=== PATIENT | female | born 1935 | race Caucasian/White ===

== ENCOUNTER 2017-04-02 14:51 | Inpatient (IN) | payer MEDICARE, BC ==
[2017-04-02] MEDS ORDERED: HYDROmorphone* 1 MG/ML 1 ML SYR IV ONE ×2 (16:46→19:41)
[2017-04-02] MEDS ORDERED: Ondansetron INJ* 2 MG/ML VIAL IV ONE (16:46)
[2017-04-02 17:02] LABS: Hematocrit 39 % (35-47); Hemoglobin 12.5 g/dl (12.0-16.0); Mean Corpuscular HGB Conc 32 g/dl (31-36); Mean Corpuscular Hemoglobin 29 pg (27-31); Mean Corpuscular Volume 89 fL (80-97); Mean Platelet Volume 10 um3 (7.4-10.4); Red Blood Count 4.35 10^6/ul (4.0-5.4); Red Cell Distribution Width 14 % (10.5-15); White Blood Count 9.5 10^3/ul (3.5-10.8)
[2017-04-02 17:22] LABS: Albumin 3.8 g/dL (3.2-5.2); BUN/Creatinine Ratio 22.6 (8-20); C Reactive Protein 1.98 mg/L (< 5.00); Calcium 9.3 mg/dL (8.6-10.3); EGFR African American 58.2 (>60); EGFR Non-African American 45.3 (>60); Globulin 3.4 g/dL (2-4); Total Bilirubin 0.4 mg/dL (0.2-1.0); Total Protein 7.2 g/dL (6.4-8.9)
[2017-04-02 17:49] LABS: Potassium 4.4 mmol/L (3.5-5.0)
[2017-04-02] MEDS ORDERED: Iodixanol* (CONTRAST) 320 MG/ML 100 ML SDV IV ONE (17:49)
--- NOTE | 2017-04-02 18:50 | RAD ---
INDICATION: Diffuse abdominal pain COMPARISON: CT October 18, 2015 TECHNIQUE: Axial source images were obtained from the hemidiaphragms to the symphysis pubis following administration of oral and intravenous contrast. 85 mL Visipaque 320 was utilized. Coronal and sagittal reconstructed images were acquired. Lung bases: The lung bases are clear. Liver: The liver is normal in size. There are no masses. There is no ductal dilatation. Gallbladder: Cholecystectomy. Spleen: The spleen is normal in size. There are no masses. Pancreas: There is no focal pancreatic mass or ductal dilatation. Adrenal glands: There is no evidence of adrenal mass. Kidneys: The kidneys are normal in size and position. There are prompt nephrograms and there is prompt excretion bilaterally. There are small, bilateral renal cysts. There is no evidence of nephrolithiasis. Adenopathy: There is no evidence of adenopathy by size criteria. Fluid collections: There are no free or localized fluid collections. Vessels:There are atherosclerotic changes involving the aorta and iliac vessels. There is mild fusiform dilatation of the infrarenal abdominal aorta near the bifurcation measuring 2.6 cm in maximum transverse dimension, unchanged. The IVC appears normal. GI tract: There are no acute CT bowel findings. There is no obstruction. There are postsurgical changes of the GE junction presumably related to Samuel procedure. The wrap may be cephalad in position but appears unchanged. The lower GI tract is remarkable long segment mucosal edema of the descending colon and moderate diverticula. The CT appearance is most consistent with colitis given the length of colonic involvement although diverticulitis is not absolutely excluded. Pelvic organs: The uterus and adnexa appear normal Bladder: There are no bladder masses. Abdominal and pelvic soft tissues: The extraperitoneal abdominal and pelvic soft tissues appear normal.. Osseous structures: There are no acute osseous findings. Other: None IMPRESSION: 1. Nonspecific mucosal edema of the descending colon is likely related to a nonspecific colitis less likely acute diverticulitis. There are scattered diverticula throughout the colon. 2. Postop changes at the GE junction. There is no radiographic change.
--- NOTE | 2017-04-02 20:33 | HP ---
H&P (Free Text) History and Physical: PCP: Viktoria Caballero MD Date/Time of Evaluation: 04/02/20172029 CC: abdominal cramping w/ BRBPR HPI: Mrs Beltre is an 81YO female HX HTN, pancreatitis, CAD/LA associated w/ MSOF presents reporting being in her usual state of health yesterday, but awakening this AM with cramping abdominal pain, nausea, and "clammy" sweats. She had a formed BM followed by a couple episodes of loose stools then BRB streaking on toilet paper progressing to turning the toilet water red. She states food made the nausea better and admits to some light-headedness and generalized weakness. She denies HX of similar. 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 acute diastolic HF IBS essential tremor depression, mild hypothyroidism Ambulatory Orders Calcium [Oyster-Carlos Manuel 500] 1,000 mg PO DAILY 02/23/14 Lansoprazole CAP (NF) [Prevacid CAP (NF)] 30 mg PO BID 02/23/14 Levothyroxine TAB* [Synthroid 125 MCG TAB*] 125 mcg PO DAILY 02/23/14 Pancrelipase (NF) [Creon (NF)] 72,000 units PO TID 02/23/14 Aspirin EC Low Dose* [Ecotrin EC Low Dose 81 MG*] 81 mg PO DAILY 04/02/17 Calcitonin NASAL(NF) [Fortical(NR)] 1 mg BOTH NARES DAILY 04/02/17 Carvedilol TAB* [Coreg TAB*] 12.5 mg PO BID 04/02/17 Cyanocobalamin [Vitamin B-12] 1,000 mcg SL DAILY 04/02/17 Furosemide TAB* [Lasix TAB*] 20 mg PO DAILY 04/02/17 Lisinopril TAB* [Prinivil TAB*] 10 mg PO DAILY 04/02/17 Pramipexole TAB* [Mirapex TAB*] 0.125 - 0.25 mg PO DAILY 04/02/17 Promethazine TAB* [Phenergan TAB*] 12.5 mg PO Q8H PRN 04/02/17 Spironolactone TAB* [Aldactone TAB*] 25 mg PO DAILY 04/02/17 amLODIPine TAB* [Norvasc 5 mg TAB*] 10 mg PO DAILY 04/02/17 Allergies Cephalexin [From Keflex] Allergy (Verified 04/02/17 14:54) Shakes PSurgHx Samuel fundoplication cholecystectomy ERCP SocHx: quit smoking >30years ago, no alcohol or recreational drugs; , lives alone; retired; DNR/I code status FamHx: Father: CAD ROS: as above, otherwise reviewed and all were negative Constitutional: NAD, normally developed, obese elderly white female vitals: Vital Signs Temp 36.7 C 04/02/17 16:27 Pulse 86 04/02/17 20:00 Resp 20 04/02/17 20:00 BP 152/69 04/02/17 20:00 Pulse Ox 88 04/02/17 20:00 Intake & Output 04/01/17 04/02/17 04/02/17 23:59 11:59 23:59 Weight 68.039 kg Other: Date of Last Bowel 04/02 Movement Estimated Stool Amount Large HEENM: atraumatic; sclera/conjunctiva: non-icteric/clear; hearing: clinically intact; oropharynx: clear, mucosa moist Neck: soft tissue: non-tender; thyroid: normal Pulmonary: clear to auscultation bilaterally, good aeration, no accessory muscle use CV: RR/RR, normal S1S2, no carotid bruit, no jugular venous distention, 2+ B DP/ PT, no edema Abdominal: soft, non-distended, non-tender, no rebound/guarding/rigidity, normoactive bowel sounds, no hepatosplenomegaly or masses, no costovertebral angle tenderness Musculoskeletal: general: grossly intact; gait: stable Integumental: normal appearance and texture of exposed skin Psychiatric orientation: AA&O to PPS affect: calm mood: pleasant eye contact: good content: reliable responses: timely insight: good Testing: Lab Results 04/02/17 04/02/17 04/02/17 Range/Units 16:50 16:50 16:50 WBC 9.5 (3.5-10.8) 10^3/ul RBC 4.35 (4.0-5.4) 10^6/ul Hgb 12.5 (12.0-16.0) g/dl Hct 39 (35-47) % MCV 89 (80-97) fL MCH 29 (27-31) pg MCHC 32 (31-36) g/dl RDW 14 (10.5-15) % Plt Count 255 (150-450) 10^3/ul MPV 10 (7.4-10.4) um3 Neut % (Auto) 55.6 (38-83) % Lymph % (Auto) 26.1 (25-47) % [place] % (Auto) 10.4 H (1-9) % Eos % (Auto) 6.8 H (0-6) % Baso % (Auto) 1.1 (0-2) % Absolute Neuts (auto) 5.3 (1.5-7.7) 10^3/ul Absolute Lymphs (auto) 2.5 (1.0-4.8) 10^3/ul Absolute Monos (auto) 1.0 H (0-0.8) 10^3/ul Absolute Eos (auto) 0.6 (0-0.6) 10^3/ul Absolute Basos (auto) 0.1 (0-0.2) 10^3/ul Absolute Nucleated RBC 0 10^3/ul Nucleated RBC % 0 INR (Anticoag Therapy) (0.89-1.11) Sodium 137 (133-145) mmol/L Potassium 4.4 (3.5-5.0) mmol/L Chloride 107 (101-111) mmol/L Carbon Dioxide 23 (22-32) mmol/L Anion Gap 7 (2-11) mmol/L BUN 26 H (6-24) mg/dL Creatinine 1.15 H (0.51-0.95) mg/dL Est GFR ( Amer) 58.2 (>60) Est GFR (Non-Af Amer) 45.3 (>60) BUN/Creatinine Ratio 22.6 H (8-20) Glucose 99 (70-100) mg/dL Lactic Acid 0.6 (0.5-2.0) mmol/L Calcium 9.3 (8.6-10.3) mg/dL Total Bilirubin 0.40 (0.2-1.0) mg/dL AST 18 (13-39) U/L ALT 11 (7-52) U/L Alkaline Phosphatase 92 (34-104) U/L C-Reactive Protein 1.98 (< 5.00) mg/L Total Protein 7.2 (6.4-8.9) g/dL Albumin 3.8 (3.2-5.2) g/dL Globulin 3.4 (2-4) g/dL Albumin/Globulin Ratio 1.1 (1-3) Lipase 44 (11.0-82.0) U/L 04/02/17 Range/Units 16:50 WBC (3.5-10.8) 10^3/ul RBC (4.0-5.4) 10^6/ul Hgb (12.0-16.0) g/dl Hct (35-47) % MCV (80-97) fL MCH (27-31) pg MCHC (31-36) g/dl RDW (10.5-15) % Plt Count (150-450) 10^3/ul MPV (7.4-10.4) um3 Neut % (Auto) (38-83) % Lymph % (Auto) (25-47) % [place] % (Auto) (1-9) % Eos % (Auto) (0-6) % Baso % (Auto) (0-2) % Absolute Neuts (auto) (1.5-7.7) 10^3/ul Absolute Lymphs (auto) (1.0-4.8) 10^3/ul Absolute Monos (auto) (0-0.8) 10^3/ul Absolute Eos (auto) (0-0.6) 10^3/ul Absolute Basos (auto) (0-0.2) 10^3/ul Absolute Nucleated RBC 10^3/ul Nucleated RBC % INR (Anticoag Therapy) 0.95 (0.89-1.11) Sodium (133-145) mmol/L Potassium (3.5-5.0) mmol/L Chloride (101-111) mmol/L Carbon Dioxide (22-32) mmol/L Anion Gap (2-11) mmol/L BUN (6-24) mg/dL Creatinine (0.51-0.95) mg/dL Est GFR ( Amer) (>60) Est GFR (Non-Af Amer) (>60) BUN/Creatinine Ratio (8-20) Glucose (70-100) mg/dL Lactic Acid (0.5-2.0) mmol/L Calcium (8.6-10.3) mg/dL Total Bilirubin (0.2-1.0) mg/dL AST (13-39) U/L ALT (7-52) U/L Alkaline Phosphatase (34-104) U/L C-Reactive Protein (< 5.00) mg/L Total Protein (6.4-8.9) g/dL Albumin (3.2-5.2) g/dL Globulin (2-4) g/dL Albumin/Globulin Ratio (1-3) Lipase (11.0-82.0) U/L CT abd/pel W, personally reviewed: IMPRESSION: 1. Nonspecific mucosal edema of the descending colon is likely related to a nonspecific colitis less likely acute diverticulitis. There are scattered diverticula throughout the colon. 2. Postop changes at the GE junction. There is no radiographic change. 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
--- NOTE | 2017-04-02 20:57 | ED ---
Erik Saxena Benjamin, scribed for Grant Valadez MD on 04/02/17 at 1637 . Abdominal Pain/Female - HPI Summary HPI Summary: 81yo female c/o x2-3 episodes of bright red BM this morning. Bloody BM was light initially, but the subsequent BMs were heavier. Pt also reports intermittently contraction like aching suprapubic pain. Pt was nauseous and clammy as well. Pt denies leg swelling or pain. - History of Current Complaint Chief Complaint: EDGIBleed Stated Complaint: GI BLEEDING Time Seen by Provider: 04/02/17 15:39 Hx Obtained From: Patient, Family/Career Development Manager - family Onset/Duration: Lasting Days - since this morning, Still Present Timing: Intermittent Episode Lasting Severity Initially: Moderate Severity Currently: Moderate Pain Intensity: 5 Pain Scale Used: 0-10 Numeric Location: Suprapubic Radiates: No Associated Signs and Symptoms: Positive: Diaphoresis, Blood in Stool - x2-3, Nausea. Negative: Vaginal Bleeding Allergies/Adverse Reactions: Allergies Allergy/AdvReac Type Severity Reaction Status Date / Time Cephalexin [From Keflex] Allergy Shakes Verified 04/02/17 14:54 Home Medications: Home Medications Aspirin EC Low Dose* [Ecotrin EC Low Dose 81 MG*] 81 mg PO DAILY 04/02/17 [ History Confirmed 04/02/17] Calcitonin NASAL(NF) [Fortical(NR)] 1 mg BOTH NARES DAILY 04/02/17 [History Confirmed 04/02/17] Carvedilol TAB* [Coreg TAB*] 12.5 mg PO BID 04/02/17 [History Confirmed 04/02/17 ] Cyanocobalamin [Vitamin B-12] 1,000 mcg SL DAILY 04/02/17 [History Confirmed 11/14] Furosemide TAB* [Lasix TAB*] 20 mg PO DAILY 04/02/17 [History Confirmed 04/02/17 ] Lisinopril TAB* [Prinivil TAB*] 10 mg PO DAILY 04/02/17 [History Confirmed 04/02] Pramipexole TAB* [Mirapex TAB*] 0.125 - 0.25 mg PO DAILY 04/02/17 [History Confirmed 04/02/17] Promethazine TAB* [Phenergan TAB*] 12.5 mg PO Q8H PRN 04/02/17 [History Confirmed 04/02/17] Spironolactone TAB* [Aldactone TAB*] 25 mg PO DAILY 04/02/17 [History Confirmed 04/02/17] amLODIPine TAB* [Norvasc 5 mg TAB*] 10 mg PO DAILY 04/02/17 [History Confirmed 04/02/17] PMH/Surg Hx/FS Hx/Imm Hx Endocrine/Hematology History: Denies: Hx Diabetes, Hx Thyroid Disease Cardiovascular History: Reports: Hx Hypertension Denies: Hx Congestive Heart Failure Respiratory History: Denies: Hx Asthma, Hx Chronic Obstructive Pulmonary Disease (COPD) GI History: Reports: Hx Diverticulosis, Hx Gall Bladder Disease - removal- unknown year, Hx Irritable Bowel, Other GI Disorders - pancreatitis Denies: Hx Ulcer Sensory History: Reports: Hx Contacts or Glasses Opthamlomology History: Reports: Hx Contacts or Glasses - Surgical History Surgery Procedure, Year, and Place: GB Infectious Disease History: Denies: Hx Hepatitis, Hx Human Immunodeficiency Virus (HIV), Traveled Outside the in Last 30 Days - Family History Known Family History: Positive: Hypertension - Social History Occupation: Retired Lives: Alone Alcohol Use: None Substance Use Type: Reports: None Smoking Status (MU): Never Smoked Tobacco Review of Systems Positive: Skin Diaphoresis Eyes: Negative ENT: Negative Cardiovascular: Negative Respiratory: Negative Positive: Abdominal Pain, Nausea, Other - Bloody BMx2-3 Genitourinary: Negative Musculoskeletal: Negative Skin: Negative Positive: Weakness Psychological: Normal All Other Systems Reviewed And Are Negative: Yes Physical Exam Triage Information Reviewed: Yes Vital Signs On Initial Exam: Initial Vitals Temp Pulse Resp BP Pulse Ox 98.1 F 89 20 164/80 96 04/02/17 14:54 04/02/17 14:54 04/02/17 14:54 04/02/17 14:54 04/02/17 14:54 Vital Signs Reviewed: Yes Appearance: Positive: Well-Appearing, No Pain Distress, Well-Nourished Skin: Positive: Warm, Skin Color Reflects Adequate Perfusion, Dry Head/Face: Positive: Normal Head/Face Inspection Eyes: Positive: Normal ENT: Positive: Normal ENT inspection Neck: Positive: Supple, Nontender Respiratory/Lung Sounds: Positive: Clear to Auscultation, Breath Sounds Present Cardiovascular: Positive: RRR Abdomen Description: Positive: Other: - tenderness at RLQ and epigastric Bowel Sounds: Positive: Present Musculoskeletal: Positive: Normal, Strength/ROM Intact Neurological: Positive: Normal, Sensory/Motor Intact, Alert, Oriented to Person Place, Time, CN Intact II-III Psychiatric: Positive: Affect/Mood Appropriate Diagnostics - Vital Signs Vital Signs Temp Pulse Resp BP Pulse Ox 04/02/17 16:00 79 17 171/67 94 04/02/17 15:30 156/74 04/02/17 14:54 98.1 F 89 20 164/80 96 - Laboratory Lab Results: Lab Results 04/02/17 04/02/17 04/02/17 Range/Units 16:50 16:50 16:50 WBC 9.5 (3.5-10.8) 10^3/ul RBC 4.35 (4.0-5.4) 10^6/ul Hgb 12.5 (12.0-16.0) g/dl Hct 39 (35-47) % MCV 89 (80-97) fL MCH 29 (27-31) pg MCHC 32 (31-36) g/dl RDW 14 (10.5-15) % Plt Count 255 (150-450) 10^3/ul MPV 10 (7.4-10.4) um3 Neut % (Auto) 55.6 (38-83) % Lymph % (Auto) 26.1 (25-47) % [place] % (Auto) 10.4 H (1-9) % Eos % (Auto) 6.8 H (0-6) % Baso % (Auto) 1.1 (0-2) % Absolute Neuts (auto) 5.3 (1.5-7.7) 10^3/ul Absolute Lymphs (auto) 2.5 (1.0-4.8) 10^3/ul Absolute Monos (auto) 1.0 H (0-0.8) 10^3/ul Absolute Eos (auto) 0.6 (0-0.6) 10^3/ul Absolute Basos (auto) 0.1 (0-0.2) 10^3/ul Absolute Nucleated RBC 0 10^3/ul Nucleated RBC % 0 INR (Anticoag Therapy) (0.89-1.11) Sodium 137 (133-145) mmol/L Potassium 4.4 (3.5-5.0) mmol/L Chloride 107 (101-111) mmol/L Carbon Dioxide 23 (22-32) mmol/L Anion Gap 7 (2-11) mmol/L BUN 26 H (6-24) mg/dL Creatinine 1.15 H (0.51-0.95) mg/dL Est GFR ( Amer) 58.2 (>60) Est GFR (Non-Af Amer) 45.3 (>60) BUN/Creatinine Ratio 22.6 H (8-20) Glucose 99 (70-100) mg/dL Lactic Acid 0.6 (0.5-2.0) mmol/L Calcium 9.3 (8.6-10.3) mg/dL Total Bilirubin 0.40 (0.2-1.0) mg/dL AST 18 (13-39) U/L ALT 11 (7-52) U/L Alkaline Phosphatase 92 (34-104) U/L C-Reactive Protein 1.98 (< 5.00) mg/L Total Protein 7.2 (6.4-8.9) g/dL Albumin 3.8 (3.2-5.2) g/dL Globulin 3.4 (2-4) g/dL Albumin/Globulin Ratio 1.1 (1-3) Lipase 44 (11.0-82.0) U/L 04/02/17 Range/Units 16:50 WBC (3.5-10.8) 10^3/ul RBC (4.0-5.4) 10^6/ul Hgb (12.0-16.0) g/dl Hct (35-47) % MCV (80-97) fL MCH (27-31) pg MCHC (31-36) g/dl RDW (10.5-15) % Plt Count (150-450) 10^3/ul MPV (7.4-10.4) um3 Neut % (Auto) (38-83) % Lymph % (Auto) (25-47) % [place] % (Auto) (1-9) % Eos % (Auto) (0-6) % Baso % (Auto) (0-2) % Absolute Neuts (auto) (1.5-7.7) 10^3/ul Absolute Lymphs (auto) (1.0-4.8) 10^3/ul Absolute Monos (auto) (0-0.8) 10^3/ul Absolute Eos (auto) (0-0.6) 10^3/ul Absolute Basos (auto) (0-0.2) 10^3/ul Absolute Nucleated RBC 10^3/ul Nucleated RBC % INR (Anticoag Therapy) 0.95 (0.89-1.11) Sodium (133-145) mmol/L Potassium (3.5-5.0) mmol/L Chloride (101-111) mmol/L Carbon Dioxide (22-32) mmol/L Anion Gap (2-11) mmol/L BUN (6-24) mg/dL Creatinine (0.51-0.95) mg/dL Est GFR ( Amer) (>60) Est GFR (Non-Af Amer) (>60) BUN/Creatinine Ratio (8-20) Glucose (70-100) mg/dL Lactic Acid (0.5-2.0) mmol/L Calcium (8.6-10.3) mg/dL Total Bilirubin (0.2-1.0) mg/dL AST (13-39) U/L ALT (7-52) U/L Alkaline Phosphatase (34-104) U/L C-Reactive Protein (< 5.00) mg/L Total Protein (6.4-8.9) g/dL Albumin (3.2-5.2) g/dL Globulin (2-4) g/dL Albumin/Globulin Ratio (1-3) Lipase (11.0-82.0) U/L Result Diagrams: 04/02/17 16:50 04/02/17 16:50 Lab Statement: Any lab studies that have been ordered have been reviewed, and results considered in the medical decision making process. - CT CTW A/P CT Interpretation: Positive (See Comments) - IMPRESSION: 1. Nonspecific mucosal edema of the descending colon is likely related to a nonspecific colitis less likely acute diverticulitis. There are scattered diverticula throughout the colon. 2. Postop changes at the GE junction. There is no radiographic change. CT Interpretation Completed By: Radiologist Abdominal Pain Fem Course/Dx - Course Course Of Treatment: Ms. Beltre presented with peristaltic-type abdominal pain and bloody stools and was found to have a colitis on CT. Ischemic colitis is in the differential and she will be admitted by the hospitalists with a GI consult. - Diagnoses Provider Diagnoses: Colitis Discharge - Discharge Plan Condition: Stable Disposition: ADMITTED TO [facility] The documentation as recorded by the Erik davis Benjamin accurately reflects the service I personally performed and the decisions made by me, Grant Valadez MD.
[2017-04-02] MEDS ORDERED: Albuterol 2.5 MG/3 ML NEB.SOL* (0.083%) INH PRN (21:49)
[2017-04-02] MEDS ORDERED: HYDROmorphone* 1 MG/ML 1 ML SYR IV PRN (21:49)
[2017-04-02] MEDS: Ondansetron INJ* 2 MG/ML VIAL IV PRN (23:24)
[2017-04-02] MEDS: oxyCODONE TAB* 5 MG TAB PO PRN (23:24)
[2017-04-02] MEDS: NS 0.9% 1000 ML* 1,000 ML IV SCH (23:24)
[2017-04-02] MEDS ORDERED: Ciprofloxacin 400MG IVPREMIX(* 400 MG/200 ML BAG IVPB SCH (23:30)
[2017-04-03] MEDS: metroNIDAZOLE IV 500 MG/100ML* 500 MG/100 ML BAG IVPB SCH ×4 (01:41→23:25)
[2017-04-03] MEDS: Acetaminophen TAB* 325 MG PO PRN (02:31)
[2017-04-03] MEDS: oxyCODONE TAB* 5 MG TAB PO PRN ×3 (05:03→23:25)
[2017-04-03] MEDS: Omeprazole CAP* 20 MG PO SCH ×3 (05:03→16:21)
[2017-04-03 05:23] LABS: Hematocrit 38 % (35-47); Hemoglobin 12.2 g/dl (12.0-16.0); Mean Corpuscular HGB Conc 32 g/dl (31-36); Mean Corpuscular Hemoglobin 30 pg (27-31); Mean Corpuscular Volume 92 fL (80-97); Mean Platelet Volume 10 um3 (7.4-10.4); Red Blood Count 4.14 10^6/ul (4.0-5.4); Red Cell Distribution Width 14 % (10.5-15); White Blood Count 10.6 10^3/ul (3.5-10.8)
[2017-04-03 06:18] LABS: BUN/Creatinine Ratio 20.2 (8-20); Calcium 8.5 mg/dL (8.6-10.3); EGFR African American 69.2 (>60); EGFR Non-African American 53.8 (>60)
[2017-04-03 06:19] LABS: Potassium 4.9 mmol/L (3.5-5.0)
[2017-04-03 08:05] LABS: PCO2 Arterial 43 mmHg (35-45)
[2017-04-03] MEDS: Spironolactone TAB* 25 MG PO SCH (08:17)
[2017-04-03] MEDS: Carvedilol TAB* 6.25 MG PO SCH ×2 (08:17→20:25)
[2017-04-03] MEDS: Lisinopril TAB* 10 MG PO SCH (08:17)
[2017-04-03] MEDS: Pramipexole TAB* 0.125 MG PO SCH (09:14)
[2017-04-03] MEDS: Levothyroxine TAB* 125 MCG TAB PO SCH (09:14)
[2017-04-03] MEDS: PTO: Calcitonin NASAL(NF) 200 UNITS/SPRAY NASAL.SPR NASAL SCH (09:14)
[2017-04-03] MEDS: PANCRELIPASE 24000 UNIT PO SCH ×3 (09:16→20:26)
[2017-04-03] MEDS: Ondansetron INJ* 2 MG/ML VIAL IV PRN ×2 (10:07→18:19)
[2017-04-03] MEDS: Promethazine TAB* 25 MG PO PRN (11:29)
[2017-04-03] MEDS: cefTRIAXone* 1 GM in NS 0.9% 50 ML BAG IVPB SCH (12:25)
--- NOTE | 2017-04-03 13:14 | PN ---
Subjective Date of Service: 04/03/17 Interval History: HOSPITALIST PROGRESS NOTE Patient seen and examined at bedside. She feels better today. Still has some mild crampy abdominal pain, but no further BMs so far, denies N/V, tolerating clear liquids. Denies CP, palpitations, dyspnea, no recent trip. Family History: Unchanged from Admission Social History: Unchanged from Admission Past Medical History: Unchanged from Admission Objective Active Medications: Acetaminophen (Tylenol Tab*) 650 mg PO Q6H PRN PRN Reason: FEVER/PAIN Last Admin: 04/03/17 02:31 Dose: 650 mg Albuterol (Ventolin 2.5 Mg/3 Ml Neb.Giovanna*) 2.5 mg INH Q2H PRN PRN Reason: SOB/WHEEZING Calcitonin [place] (Fortical(Nr)) 200 units NASAL DAILY CELINA PRN Reason: Protocol Last Admin: 04/03/17 09:14 Dose: Not Given Carvedilol (Coreg Tab*) 12.5 mg PO BID [facility] Last Admin: 04/03/17 08:17 Dose: 12.5 mg Hydromorphone HCl (Dilaudid Iv*) 0.5 mg IV Q2H PRN PRN Reason: PAIN Last Admin: 04/03/17 12:25 Dose: 0.5 mg Sodium Chloride (Ns 0.9% 1000 Ml*) 1,000 mls @ 100 mls/hr IV PER RATE [facility] Last Admin: 04/02/17 23:24 Dose: 100 mls/hr Metronidazole/Sodium Chloride (Flagyl 500 Mg Ivpb*) 500 mg in 100 mls @ 100 mls /hr IVPB Q8H [facility] Last Admin: 04/03/17 08:18 Dose: 100 mls/hr Ceftriaxone Sodium 1,000 mg/ (Sodium Chloride) 50 mls @ 200 mls/hr IVPB Q24H [facility] Last Admin: 04/03/17 12:25 Dose: 200 mls/hr Levothyroxine Sodium (Synthroid Tab*) 125 mcg PO DAILY@0600 [facility] Last Admin: 04/03/17 09:14 Dose: 125 mcg Lisinopril (Prinivil Tab*) 10 mg PO DAILY [facility] Last Admin: 04/03/17 08:17 Dose: 10 mg Melatonin (Melatonin (Nf)) 3 mg PO BEDTIME PRN; Protocol PRN Reason: Sleep Omeprazole (Prilosec Cap*) 20 mg PO DAILY@0600 [facility] Last Admin: 04/03/17 05:03 Dose: 20 mg Omeprazole (Prilosec Cap*) 20 mg PO BID@0730,1630 [facility] PRN Reason: Protocol Last Admin: 04/03/17 08:17 Dose: 20 mg Ondansetron HCl (Zofran Inj*) 4 mg IV Q6H PRN PRN Reason: NAUSEA Last Admin: 04/03/17 10:07 Dose: 4 mg Oxycodone HCl (Roxycodone Tab*) 5 mg PO Q4H PRN PRN Reason: PAIN Last Admin: 04/03/17 10:06 Dose: 5 mg Pancrelipase (Creon (Nf)) 72,000 units PO TID [facility] Last Admin: 04/03/17 09:16 Dose: Not Given Pramipexole Dihydrochloride (Mirapex Tab*) 0.125 mg PO DAILY [facility] Last Admin: 04/03/17 09:14 Dose: 0.125 mg Promethazine HCl (Phenergan Tab*) 12.5 mg PO Q8H PRN PRN Reason: NAUSEA Last Admin: 04/03/17 11:29 Dose: 12.5 mg Spironolactone (Aldactone Tab*) 25 mg PO DAILY [facility] Last Admin: 04/03/17 08:17 Dose: 25 mg Vital Signs 04/03/17 04/03/17 11:10 12:25 Temperature 98.0 F Pulse Rate 71 Respiratory 14 18 Rate Blood Pressure 135/58 (mmHg) O2 Sat by Pulse 94 Oximetry Oxygen Devices in Use Now: None Appearance: Pleasant elderly lady sitting up in a recliner in [facility]. Eyes: No Scleral Icterus Ears/Nose/Mouth/Throat: Mucous Membranes Moist Neck: Trachea Midline Respiratory: Symmetrical Chest Expansion and Respiratory Effort, Clear to Auscultation Cardiovascular: RRR - Normal S1 and S2 Abdominal: - - Obese, soft, mild LLQ tenderness, NG, NR, BS+ Neurological: Alert and Oriented x 3, NL Muscle Strength and Tone Lines/Tubes/Other Access: Clean, Dry and Intact Peripheral IV Nutrition: Taking PO's Result Diagrams: 04/03/17 05:02 04/03/17 05:02 Assess/Plan/Problems-Billing Assessment: Mrs. Beltre is an 81yo F with PMH of HTN, GERD s/p Samuel fundoplication, pancreatitis, CAD, diastolic CHF, IBS, who presented to ED with c/o abdominal pain and BRBPR, found to have possible ischemic colitis. - Patient Problems (1) Ischemic colitis Comment: - Improving. - Continue Cipro/Flagyl. - Awaiting GI input, but if no further testing planned, will advance diet to full liquid. (2) Metabolic acidosis Comment: - Etiology unclear - pH and bicarb are normal on her blood gas and lactic acid is normal too. - Continue to monitor. (3) Hypoxemia Comment: - ABG reveals low pO2 with high A-a gradient. - Patient denies dyspnea and is on RA. - Check CxR and V/Q scan. (4) HTN (hypertension) Comment: - Continue Lisinopril and Caverdilol. (5) DVT prophylaxis Comment: - Pharmacological prophylaxis contraindicated in the setting of GI bleed. - SCDs. (6) DNR (do not resuscitate) Status and Disposition: Inpatient.
--- NOTE | 2017-04-03 13:49 | RAD ---
Indication: Decreased oxygenation, hypoxia. 2 views of the chest including dual energy PA views demonstrate no mediastinal shift. Heart is of normal size and configuration. Lung lombardi are clear. IMPRESSION: No active disease is noted.
--- NOTE | 2017-04-03 14:01 | RAD ---
INDICATION: Low pO2. Evaluate for pulmonary embolus. COMPARISON: Chest x-ray 2016 TECHNIQUE: Following the administration of 10.2 millicuries of xenon gas, anterior and posterior deep breath, equilibrium, and washout phase imaging was performed. Following the intravenous administration of 6.2 millicuries of technetium 99m, MAA, anterior, posterior, lateral, and oblique imaging of the chest was performed. FINDINGS: Ventilation images show normal ventilation. The perfusion images show no segmentally absent areas of ventilation/perfusion mismatch. The probability of acute pulmonary embolus is low. IMPRESSION: LOW PROBABILITY FOR ACUTE PULMONARY EMBOLUS.
[2017-04-03] MEDS: NS 0.9% 1000 ML* 1,000 ML IV SCH (15:39)
--- NOTE | 2017-04-03 18:21 | CONS ---
CONSULTATION REPORT: DATE OF CONSULT: 04/03/17 REQUESTING PHYSICIAN: Dr. Boggs. INDICATION: Left-sided colitis. NARRATIVE: Ms. Beltre is a very pleasant 81-year-old female, who has a history of irritable bowel syndrome, hypertension, pancreatitis, coronary artery disease, and GERD, who was admitted with crampy abdominal pain yesterday. She did notice some blood. She states that the day before she had been walking around downtown [place]. She remembers being very hot and wonders if she got dehydrated. She does not remember drinking many fluids. That night , she developed crampy abdominal pain, she called it more of a discomfort than a pain and then bright red blood per rectum. She denies any fevers or chills. No new medications, no sick contacts. Never had pain like this before. She did come to the emergency room where a CT showed left-sided colitis. She was admitted for that. She was started on IV antibiotics and IV fluids for a presumed diagnosis of ischemic colitis. This morning, she feels much better, she states that the discomfort is pretty much gone. She has not had any further bleeding. She is very hungry. PAST MEDICAL HISTORY: Please see the HPI. Diastolic congestive heart failure, hypothyroid, mild depression, benign essential tremor. PAST SURGICAL HISTORY: Include cholecystectomy and Samuel fundoplication. MEDICATIONS: Upon admission include: 1. Calcium. 2. Prevacid. 3. Synthroid. 4. Creon. 5. Aspirin. 6. Vitamin B12. 7. Lasix. 8. Prinivil. 9. Mirapex. 10. Aldactone. 11. Norvasc. ALLERGIES: To KEFLEX. FAMILY HISTORY: Significant for coronary artery disease. SOCIAL HISTORY: She quit smoking many decades ago. Denies any alcohol or IV drugs. REVIEW OF SYSTEMS: Please see the HPI. Other than that mentioned in the HPI, were unremarkable. PHYSICAL EXAM: Temperature is 98.0, blood pressure is 135/58, pulse is 79, respiratory rate of 20. General: Well-appearing elderly female, lying flat in bed, alert, oriented, pleasant, fluent. HEENT: Mucous membranes are moist without lesions, ulcers, or exudates. Neck: Supple. Trachea is midline. Head is normocephalic, atraumatic. Heart: Regular rate and rhythm. No murmurs , rubs, or gallops. Lungs: Clear to auscultation. Abdomen: Positive bowel sounds. Soft, nontender, nondistended. She is obese. No rebound, no guarding. No masses were felt. DIAGNOSTIC STUDIES/LAB DATA: Of note, white count is 10.6, hemoglobin is 12.2, platelets are 176. Sodium is 131, BUN is , creatinine is 0.99. CT shows descending colon colitis with diverticulosis, but no evidence of diverticulitis. ASSESSMENT AND PLAN: This is a pleasant 81-year-old female with crampy abdominal discomfort, some bright red blood and a CT showing left-sided colitis. Most likely etiology would be ischemic colitis potentially from dehydration. She has turned the corner very nicely. She is feeling much better today. I would recommend we continue with the IV fluids, IV antibiotics. We can advance her diet if she continues to do well, most likely tomorrow she can be discharged. We will continue to follow along. [id number]/[facility] #: [id number] MATT
[2017-04-03] MEDS: CMCS: Melatonin (NF) 3 MG TAB PO PRN (23:24)
[2017-04-04] MEDS: Ondansetron INJ* 2 MG/ML VIAL IV PRN (05:05)
[2017-04-04] MEDS: Omeprazole CAP* 20 MG PO SCH ×3 (05:05→16:23)
[2017-04-04] MEDS: Levothyroxine TAB* 125 MCG TAB PO SCH (05:14)
[2017-04-04] MEDS: Acetaminophen TAB* 325 MG PO PRN ×2 (08:15→16:22)
[2017-04-04] MEDS: Carvedilol TAB* 6.25 MG PO SCH ×2 (08:15→21:21)
[2017-04-04] MEDS: Pramipexole TAB* 0.125 MG PO SCH (08:15)
[2017-04-04] MEDS: Lisinopril TAB* 10 MG PO SCH (08:15)
[2017-04-04] MEDS: Promethazine TAB* 25 MG PO PRN (08:16)
[2017-04-04] MEDS: Spironolactone TAB* 25 MG PO SCH (08:16)
[2017-04-04] MEDS: PANCRELIPASE 24000 UNIT PO SCH ×2 (08:21→16:14)
[2017-04-04] MEDS: PTO: Calcitonin NASAL(NF) 200 UNITS/SPRAY NASAL.SPR NASAL SCH (08:21)
[2017-04-04] MEDS: metroNIDAZOLE IV 500 MG/100ML* 500 MG/100 ML BAG IVPB SCH ×2 (08:21→16:17)
[2017-04-04 08:26] LABS: BUN/Creatinine Ratio 13.8 (8-20); Calcium 9.1 mg/dL (8.6-10.3); EGFR African American 73.5 (>60); EGFR Non-African American 57.2 (>60)
[2017-04-04 08:27] LABS: Potassium 4.9 mmol/L (3.5-5.0)
[2017-04-04 09:57] LABS: Hematocrit 36 % (35-47); Hemoglobin 11.5 g/dl (12.0-16.0); Mean Corpuscular HGB Conc 32 g/dl (31-36); Mean Corpuscular Hemoglobin 29 pg (27-31); Mean Corpuscular Volume 90 fL (80-97); Mean Platelet Volume 9 um3 (7.4-10.4); Red Blood Count 3.97 10^6/ul (4.0-5.4); Red Cell Distribution Width 14 % (10.5-15); White Blood Count 9.8 10^3/ul (3.5-10.8)
[2017-04-04] MEDS: cefTRIAXone* 1 GM in NS 0.9% 50 ML BAG IVPB SCH (12:19)
--- NOTE | 2017-04-04 13:08 | PN ---
Subjective Date of Service: 04/04/17 Interval History: HOSPITALIST PROGRESS NOTE Patient seen and examined at bedside. She felt better this AM, tolerated breakfast with minimal nausea, denied abdominal pain, but later on developed crampy abdominal pain again, followed by BM with BRBPR. Family History: Unchanged from Admission Social History: Unchanged from Admission Past Medical History: Unchanged from Admission Objective Active Medications: Acetaminophen (Tylenol Tab*) 650 mg PO Q6H PRN PRN Reason: FEVER/PAIN Last Admin: 04/04/17 08:15 Dose: 650 mg Albuterol (Ventolin 2.5 Mg/3 Ml Neb.Giovanna*) 2.5 mg INH Q2H PRN PRN Reason: SOB/WHEEZING Calcitonin [place] (Fortical(Nr)) 200 units NASAL DAILY CELINA PRN Reason: Protocol Last Admin: 04/04/17 08:21 Dose: Not Given Carvedilol (Coreg Tab*) 12.5 mg PO BID [facility] Last Admin: 04/04/17 08:15 Dose: 12.5 mg Hydromorphone HCl (Dilaudid Iv*) 0.5 mg IV Q2H PRN PRN Reason: PAIN Last Admin: 04/03/17 12:25 Dose: 0.5 mg Metronidazole/Sodium Chloride (Flagyl 500 Mg Ivpb*) 500 mg in 100 mls @ 100 mls /hr IVPB Q8H [facility] Last Admin: 04/04/17 08:21 Dose: 100 mls/hr Ceftriaxone Sodium 1,000 mg/ (Sodium Chloride) 50 mls @ 200 mls/hr IVPB Q24H [facility] Last Admin: 04/04/17 12:19 Dose: 200 mls/hr Levothyroxine Sodium (Synthroid Tab*) 125 mcg PO DAILY@0600 CELINA Last Admin: 04/04/17 05:14 Dose: 125 mcg Lisinopril (Prinivil Tab*) 10 mg PO DAILY [facility] Last Admin: 04/04/17 08:15 Dose: 10 mg Melatonin (Melatonin (Nf)) 3 mg PO BEDTIME PRN; Protocol PRN Reason: Sleep Last Admin: 04/03/17 23:24 Dose: 3 mg Omeprazole (Prilosec Cap*) 20 mg PO DAILY@0600 [facility] Last Admin: 04/04/17 05:05 Dose: 20 mg Omeprazole (Prilosec Cap*) 20 mg PO BID@0730,1630 [facility] PRN Reason: Protocol Last Admin: 04/04/17 08:16 Dose: 20 mg Ondansetron HCl (Zofran Inj*) 4 mg IV Q6H PRN PRN Reason: NAUSEA Last Admin: 04/04/17 05:05 Dose: 4 mg Oxycodone HCl (Roxycodone Tab*) 5 mg PO Q4H PRN PRN Reason: PAIN Last Admin: 04/03/17 23:25 Dose: 5 mg Pancrelipase (Creon (Nf)) 72,000 units PO TID [facility] Last Admin: 04/04/17 08:21 Dose: Not Given Pramipexole Dihydrochloride (Mirapex Tab*) 0.125 mg PO DAILY [facility] Last Admin: 04/04/17 08:15 Dose: 0.125 mg Promethazine HCl (Phenergan Tab*) 12.5 mg PO Q8H PRN PRN Reason: NAUSEA Last Admin: 04/04/17 08:16 Dose: 12.5 mg Spironolactone (Aldactone Tab*) 25 mg PO DAILY [facility] Last Admin: 04/04/17 08:16 Dose: 25 mg Vital Signs 04/04/17 04/04/17 04/04/17 01:25 04:03 07:19 Temperature 98.3 F 98.6 F Pulse Rate 82 74 Respiratory 15 18 18 Rate Blood Pressure 155/58 140/48 (mmHg) O2 Sat by Pulse 91 90 Oximetry Oxygen Devices in Use Now: None Appearance: Pleasant elderly lady lying in bed in [facility]. Eyes: No Scleral Icterus Ears/Nose/Mouth/Throat: Mucous Membranes Moist Neck: Trachea Midline Respiratory: Symmetrical Chest Expansion and Respiratory Effort, Clear to Auscultation Cardiovascular: RRR - Normal S1 and S2 Abdominal: - - Soft, obese, mild LLQ tenderness, NG, NR, BS+ Neurological: Alert and Oriented x 3, NL Muscle Strength and Tone Lines/Tubes/Other Access: Clean, Dry and Intact Peripheral IV Nutrition: Taking PO's Result Diagrams: 04/04/17 09:47 04/04/17 07:59 Assess/Plan/Problems-Billing Assessment: Mrs. Beltre is an 81yo F with PMH of HTN, GERD s/p Samuel fundoplication, pancreatitis, CAD, diastolic CHF, IBS, who presented to ED with c/o abdominal pain and BRBPR, found to have possible ischemic colitis. - Patient Problems (1) Ischemic colitis Comment: - Improving. - Continue Ceftriaxone/Flagyl #2. - GI input appreciated. - Continue low fiber diet. (2) Metabolic acidosis Comment: - Etiology unclear - pH and bicarb are normal on her blood gas and lactic acid is normal too. - Resolved. (3) Hypoxemia Comment: - ABG reveals low pO2 with high A-a gradient. - Patient denies dyspnea and is on RA. - CxR and V/Q scan were normal. (4) HTN (hypertension) Comment: - Continue Lisinopril and Caverdilol. (5) DVT prophylaxis Comment: - Pharmacological prophylaxis contraindicated in the setting of GI bleed. - SCDs. (6) DNR (do not resuscitate) Status and Disposition: Inpatient.
[2017-04-04 20:49] LABS: Hematocrit 36 % (35-47); Hemoglobin 11.3 g/dl (12.0-16.0)
[2017-04-04] MEDS: oxyCODONE TAB* 5 MG TAB PO PRN (21:23)
[2017-04-05] MEDS: metroNIDAZOLE IV 500 MG/100ML* 500 MG/100 ML BAG IVPB SCH ×2 (01:03→08:32)
[2017-04-05] MEDS: PANCRELIPASE 24000 UNIT PO SCH ×2 (01:53→08:35)
[2017-04-05] MEDS: CMCS: Melatonin (NF) 3 MG TAB PO PRN (02:09)
[2017-04-05 05:31] LABS: Hematocrit 36 % (35-47); Hemoglobin 11.5 g/dl (12.0-16.0); Mean Corpuscular HGB Conc 32 g/dl (31-36); Mean Corpuscular Hemoglobin 29 pg (27-31); Mean Corpuscular Volume 90 fL (80-97); Mean Platelet Volume 10 um3 (7.4-10.4); Red Blood Count 4.04 10^6/ul (4.0-5.4); Red Cell Distribution Width 14 % (10.5-15); White Blood Count 11.5 10^3/ul (3.5-10.8)
[2017-04-05 05:42] LABS: BUN/Creatinine Ratio 12.1 (8-20); Calcium 8.7 mg/dL (8.6-10.3); EGFR African American 69.2 (>60); EGFR Non-African American 53.8 (>60); Potassium 3.9 mmol/L (3.5-5.0)
[2017-04-05] MEDS: Levothyroxine TAB* 125 MCG TAB PO SCH (07:28)
[2017-04-05] MEDS: Omeprazole CAP* 20 MG PO SCH ×3 (07:28→08:50)
[2017-04-05] MEDS: Ondansetron INJ* 2 MG/ML VIAL IV PRN (07:37)
[2017-04-05] MEDS: Lisinopril TAB* 10 MG PO SCH (08:32)
[2017-04-05] MEDS: Carvedilol TAB* 6.25 MG PO SCH (08:32)
[2017-04-05] MEDS: Pramipexole TAB* 0.125 MG PO SCH (08:32)
[2017-04-05] MEDS: Spironolactone TAB* 25 MG PO SCH (08:32)
[2017-04-05] MEDS: PTO: Calcitonin NASAL(NF) 200 UNITS/SPRAY NASAL.SPR NASAL SCH (08:35)
[2017-04-05 11:51] VITALS: BP 143/51
[2017-04-05] MEDS: cefTRIAXone* 1 GM in NS 0.9% 50 ML BAG IVPB SCH (12:05)
--- NOTE | 2017-04-07 03:32 | DS ---
CC: Dr. Caballero; Dr. Carlin* DISCHARGE SUMMARY: DATE OF ADMISSION: 04/02/17 DATE OF DISCHARGE: 04/05/17 PRIMARY CARE PROVIDER: Dr. Cabalelro. CONSULTING YARD FOREMAN: Dr. Carlin. DISCHARGE DIAGNOSES: 1. Bright red blood per rectum secondary to ischemic colitis. 2. Brief episode of metabolic acidosis of unclear etiology. 3. Hypoxemia with high A-a gradient of unclear etiology. SECONDARY DIAGNOSES: 1. Hypertension. 2. Gastroesophageal reflux disease, status post Samuel fundoplication. 3. Pancreatitis. 4. Coronary artery disease. 5. Diastolic congestive heart failure. 6. Irritable bowel syndrome. MEDICATION LIST: 1. Spironolactone 25 mg p.o. daily. 2. Phenergan 12.5 mg p.o. q.8 hours p.r.n. nausea. 3. Mirapex 0.125 to 0.25 mg p.o. daily. 4. Lisinopril 10 mg p.o. daily. 5. Levothyroxine 125 mcg p.o. daily. 6. Lansoprazole 30 mg p.o. b.i.d. 7. Furosemide 20 mg p.o. daily. 8. Cyanocobalamin 1000 mcg sublingual daily. 9. Pancrelipase 84096 units p.o. t.i.d. 10. Carvedilol 12.5 mg p.o. b.i.d. 11. Calcium 1000 mg p.o. daily. 12. Calcitonin nasal 1 mg both nares daily. 13. Amlodipine 100 mg p.o. daily. Aspirin was held during this admission, but will be resumed on June 08 as long as the patient does not have any more episodes of bright red blood per rectum. New medications: 1. Acetaminophen 650 mg p.o. q.6 hours p.r.n. pain or fever. 2. Ciprofloxacin 500 mg p.o. b.i.d. for 5 more days. 3. Metronidazole 500 mg p.o. q.8 hours for 5 more days. HOSPITAL COURSE: Mrs. Beltre is an 81-year-old lady, who presents to the emergency room with complaints of abdominal cramp and a bowel movement followed by bright red blood per rectum. For more details about her presentation, I refer you to her history and physical. In the emergency room, the patient had a CT of the abdomen and pelvis that showed nonspecific mucosal edema of the descending colon likely related to a nonspecific colitis, less likely acute diverticulitis. The patient was admitted to the medical floor under the impression of ischemic colitis and started on ciprofloxacin and metronidazole empirically. She was seen in consultation by Gastroenterology (Dr. Carlin) and his assessment was that the patient presented with crampy abdominal discomfort, some bright red blood, and CT showing left-sided colitis. He felt that the etiology would be ischemic colitis, potentially from dehydration. The patient continued to improve. She was able to tolerate a diet. She had a bowel movement in the hospital that contained dark old blood, but no more bright red blood per rectum. On admission, her hemoglobin was 12.5, it dropped to 11.5 with IV hydration, but it remained stable after that. The patient was found to have a CO2 of 13. A blood gas was performed and it showed a normal pH of 7.38, pCO2 of 43, PaO2 of 58 with 93% oxygen saturation and bicarbonate of 24.9. Lactic acid was normal multiple times, 0.6, 1.0, and 0.7. The laboratory test was repeated and the patient's bicarb was back to normal, so I questioned if this could represent laboratory error. Same thing with the low PaO2 found on her ABG. The patient had no complaints of chest pain or shortness of breath, but as she was found to have a high A-a gradient, a chest x-ray was performed and it showed no acute pulmonary disease and a V/Q scan showed low probability for pulmonary embolus. The patient had symptomatic improvement, was able to tolerate oral diet, and felt to be stable for discharge. PHYSICAL EXAMINATION: Vital Signs: Temperature 98.2, heart rate is 65, respiratory rate is 20, oxygen saturation is 95%, blood pressure is 143/51. General: The patient is a pleasant elderly lady, sitting up in the bed, in no acute distress. CVS: S1 and S2. Regular rate and rhythm. Chest: Breath sounds present bilaterally with no added sounds. Abdomen: Obese, soft with minimal left lower quadrant tenderness. No guarding, no rebound. Bowel sounds are present. Extremities: No edema. Neuro: She is alert and oriented x3. Able to move all 4 extremities. DIET: The patient was advised to follow a low-residue diet for 2 weeks. ACTIVITY: As tolerated. DISPOSITION: To home. STATUS WHILE IN THE HOSPITAL: Inpatient. Please keep in mind this is a summarized version of this patient's hospital stay. If you need more information, please feel free to call me at [phone] or please obtain the full medical records. TIME SPENT: Approximately 45 minutes were spent to complete this discharge. [id number]/[facility] #: [id number] MTDD
== END 2017-04-05 14:00 | disposition home or self-care (01) | DRG 393 ==
LOC: ED 14:51 → MEDTELE 20:45
PROVIDERS: ADMIT Hospitalist; ATTEND Internal Medicine
DX: K55.9 Vascular disorder of intestine, unspecified (principal); K85.90 Acute pancreatitis without necrosis or infection, unspecified; E87.2 Acidosis; I11.0 Hypertensive heart disease with heart failure; I50.30 Unspecified diastolic (congestive) heart failure; E86.0 Dehydration; R09.02 Hypoxemia; I25.10 Atherosclerotic heart disease of native coronary artery without angina pectoris; K21.9 Gastro-esophageal reflux disease without esophagitis; K58.9 Irritable bowel syndrome, unspecified; E03.9 Hypothyroidism, unspecified; Z79.82 Long term (current) use of aspirin; Z79.899 Other long term (current) drug therapy; Z88.8 Allergy status to other drugs, medicaments and biological substances; Z87.891 Personal history of nicotine dependence; Z66 Do not resuscitate; Z82.49 Family history of ischemic heart disease and other diseases of the circulatory system; I25.2 Old myocardial infarction
CPT/HCPCS: 36415; 36600; 71020; 74177; 78582; 80048; 80053; 82803; 83605; 83690; 85014; 85018; 85025; 85610; 86140; A9270-GY; A9540; A9558; J0696; J0744; J1170; J2405; Q9967

== ENCOUNTER 2018-04-29 11:28 | Emergency (ER) | payer MEDICARE, BC ==
--- NOTE | 2018-04-29 11:59 | ED ---
Shortness of Breath - HPI Summary HPI Summary: This patient is an 82 year old F presenting to [facility] accompanied by her son with a chief complaint of SOB since 2 weeks ago. Pt endorses productive cough producing clear, thick, mucous, and that her abd feels full. Sx worse with exertion. She denies smoking and edema. Rx Lasix 20 mg, spironolactone 25mg. - History of Current Complaint Chief Complaint: EDShortnessOfBreath Time Seen by Provider: 04/29/18 11:47 Hx Obtained From: Patient Onset/Duration: Gradual Onset, Lasting Weeks, Still Present Timing: Constant Current Severity: Moderate Dyspnea At: Exertion Aggrevating Factors: Other - exertion Associated Signs & Symptoms: Cough (Productive), Wheezing - Allergy/Home Medications Allergies/Adverse Reactions: Allergies Allergy/AdvReac Type Severity Reaction Status Date / Time Cephalexin [From Keflex] Allergy Shakes Verified 04/29/18 11:56 PMH/Surg Hx/FS Hx/Imm Hx Endocrine/Hematology History: Denies: Hx Diabetes, Hx Thyroid Disease Cardiovascular History: Reports: Hx Cardiac Arrest, Hx Hypertension Denies: Hx Congestive Heart Failure Respiratory History: Denies: Hx Asthma, Hx Chronic Obstructive Pulmonary Disease (COPD) GI History: Reports: Hx Diverticulosis, Hx Gall Bladder Disease - removal- unknown year, Hx Irritable Bowel, Other GI Disorders - pancreatitis Denies: Hx Ulcer Sensory History: Reports: Hx Contacts or Glasses, Hx Hearing Problem - [place] Denies: Hx Deafness, Hx Hearing Aid Opthamlomology History: Reports: Hx Contacts or Glasses EENT History: Denies: Hx Deafness Psychiatric History: Denies: Hx Autism, Hx Schizophrenia - Surgical History Surgery Procedure, Year, and Place: GB - Immunization History Immunizations Up to Date: Yes Infectious Disease History: No Infectious Disease History: Denies: Hx Hepatitis, Hx Human Immunodeficiency Virus (HIV), Traveled Outside the [place] in Last 30 Days - Family History Known Family History: Positive: Hypertension - Social History Occupation: Retired Lives: With Family Alcohol Use: None Hx Substance Use: No Substance Use Type: Reports: None Hx Tobacco Use: No Smoking Status (MU): Never Smoked Tobacco Have You Smoked in the Last Year: No Review of Systems Negative: Fever Negative: Chest Pain Positive: Shortness Of Breath Positive: no symptoms reported Negative: Edema All Other Systems Reviewed And Are Negative: Yes Physical Exam - Summary Physical Exam Summary: Appearance: Well appearing, no pain distress Skin: warm, dry, reflects adequate perfusion Head/face: normal Eyes: EOMI, DANIEL ENT: normal Neck: supple, non-tender Respiratory: CTA, breath sounds present Cardiovascular: RRR, pulses symmetrical Abdomen: non-tender, soft Bowel: present Musculoskeletal: normal, strength/ROM intact Neuro: normal, sensory motor intact, A&Ox3 Triage Information Reviewed: Yes Vital Signs On Initial Exam: Initial Vitals Temp Pulse Resp BP Pulse Ox 97.2 F 74 24 109/94 96 04/29/18 11:31 04/29/18 11:31 04/29/18 11:31 04/29/18 11:31 04/29/18 11:31 Vital Signs Reviewed: Yes Diagnostics - Vital Signs Vital Signs Temp Pulse Resp BP Pulse Ox 04/29/18 11:31 97.2 F 74 24 109/94 96 - Laboratory Result Diagrams: 04/29/18 12:09 04/29/18 12:09 Lab Statement: Any lab studies that have been ordered have been reviewed, and results considered in the medical decision making process. - Radiology CXR Xray Interpretation: No Acute Changes Radiology Interpretation Completed By: Radiologist - No evidence for acute disease. Dr. Krishnan has reviewed this report. - EKG 1143 Cardiac Rate: NL - 64 EKG Rhythm: Sinus Rhythm ST Segment: Normal Ectopy: None EKG Interpretation: LBBB Re-Evaluation - Re-Evaluation First Eval Re-Evaluation Time: 13:45 Change: Unchanged Comment: Reviewed labs and imaging, discussed mostly (-) results. Second Eval Re-Evaluation Time: 14:51 Change: Unchanged Comment: Discussed discharge, dx. Course/Dx - Course Course Of Treatment: An 82-year-old F presents to the ED with a CC of SOB for 2 weeks. (+) productive cough (clear, thick mucous. (-) CP, edema. Rx lasix, spirinolacone. A CXR was (-). An EKG reveals NSR at 64 BPM with a LBBB. In the ED labs x-ray done which within normal limits. He doesn't need to change any medications at present patient in no distress otherwise to follow up with primary care in 2-3 days for follow-up. - Diagnoses Differential Diagnosis/HQI/PQRI: Positive: Bronchitis, CHF, Pneumonia, Other - dyspnea Provider Diagnoses: Dyspnea Discharge - Sign-Out/Discharge Documenting (check all that apply): Patient Departure - discharge - Discharge Plan Condition: Stable Disposition: HOME Patient Education Materials: Dyspnea (ED) Referrals: Jose Caballero MD [Primary Care Provider] - 3 Days Additional Instructions: Return to the emergency department for any new or worsening symptoms. - Billing Disposition and Condition Condition: STABLE Disposition: Home - Attestation Statements Document Initiated by Froylan: Yes Documenting Scribe: Wang Lanier Provider For Whom Froylan is Documenting (Include Credential): Dr. Toy Krishnan MD Scribe Attestation: Wang Saxena scribed for Dr. Toy Krishnan MD on 04/29/18 at 1457. Scribe Documentation Reviewed: Yes Provider Attestation: The documentation as recorded by the Wang davis accurately reflects the service I personally performed and the decisions made by me, Dr. Toy Krishnan MD
[2018-04-29 12:17] LABS: ABS Basophils 0.1 10^3/ul (0-0.2); ABS Eosinophils 0.5 10^3/ul (0-0.6); ABS Lymphocytes 1.7 10^3/ul (1.0-4.8); ABS Monocytes 0.6 10^3/ul (0-0.8); ABS Neutrophils 6.3 10^3/ul (1.5-7.7); ABS Nucleated RBC 0 10^3/ul; Eosinophil % 5.5 % (0-6); Hematocrit 38 % (35-47); Hemoglobin 12.4 g/dl (12.0-16.0); Lymphocyte % 18.1 % (25-47); Mean Corpuscular HGB Conc 32 g/dl (31-36); Mean Corpuscular Hemoglobin 30 pg (27-31); Mean Corpuscular Volume 92 fL (80-97); Mean Platelet Volume 9.3 um3 (7.4-10.4); Nucleated Red Blood Cells % 0; Platelet Count 219 10^3/ul (150-450); Red Blood Count 4.16 10^6/ul (4.00-5.40); Red Cell Distribution Width 13 % (10.5-15); White Blood Count 9.2 10^3/ul (3.5-10.8)
[2018-04-29 12:30] LABS: INR 0.92 (0.77-1.02)
[2018-04-29 12:40] LABS: EGFR Non-African American 43.9 (>60)
--- NOTE | 2018-04-29 13:36 | RAD ---
INDICATION: Shortness of breath. COMPARISON: Comparison is made with a prior study from April 03, 2017. TECHNIQUE: A portable view of the chest was obtained. FINDINGS: The heart is mildly enlarged and unchanged from the prior exam. The lungs are hyperinflated and clear. No pleural effusion is seen. IMPRESSION: NO EVIDENCE FOR ACUTE DISEASE.
[2018-04-29 15:12] VITALS: BP 139/69
== END 2018-04-29 15:11 | disposition home or self-care (01) ==
LOC: ED 11:28
DX: R06.00 Dyspnea, unspecified (principal); I44.7 Left bundle-branch block, unspecified; I10 Essential (primary) hypertension; Z86.74 Personal history of sudden cardiac arrest
CPT/HCPCS: 36415; 71045; 80053; 83880; 84484; 85025; 85379; 85610; 85730; 93005; 99283